=== PATIENT | male | born 1945 | race Caucasian/White ===

== ENCOUNTER 2016-10-13 08:00 | Outpatient (RCR) | payer MEDICARE, BC | END 2016-10-13 12:00 | disposition home or self-care (01) | LOC: PT 08:00 | DX: R26.81 Unsteadiness on feet (principal) ==

== ENCOUNTER → 2016-11-30 | Outpatient (CLI) | payer MEDICARE, BC | LOC: RAD 13:23 | DX: R06.02 Shortness of breath (principal) ==

== ENCOUNTER 2017-12-21 09:30 | Outpatient (RCR) | payer MEDICARE, BC | END 2017-12-21 10:00 | disposition home or self-care (01) | LOC: PT 09:30 | DX: G20 Parkinson's disease (principal); F02.80 Dementia in other diseases classified elsewhere, unspecified severity, without behavioral disturbance, psychotic disturbance, mood disturbance, and anxiety | CPT/HCPCS: G8978-GP; G8979-GP ==

== ENCOUNTER 2018-09-23 18:45 | Emergency (ER) | payer MEDICARE, BC ==
[~2018-09-23] VITALS: Ht 177.8 cm; Wt 75.0 kg
[2018-09-23 19:00] VITALS: BP 122/71
[2018-09-23] MEDS ORDERED: SULFAMETHOXAZO1 EACH PO (19:15)
[2018-09-23] MEDS ORDERED: CEPHALEXIN500 M1 PO (19:15)
[2018-09-23] MEDS ORDERED: EFFEXOR XR150 M1 PO (19:17)
[2018-09-23] MEDS ORDERED: FLOMAX0.4 MG PO (19:18)
[2018-09-23] MEDS ORDERED: MIRTAZAPINE45 M2 PO (19:18)
[2018-09-23] MEDS ORDERED: ZESTRIL20 M1 PO (19:18)
[2018-09-23] MEDS ORDERED: LAMICTAL200 M1 PO (19:18)
[2018-09-23] MEDS ORDERED: LATANOPROST 2.2.5 ML OU (19:18)
[2018-09-23] MEDS ORDERED: LINZESS145 MCG PO (19:19)
[2018-09-23] MEDS ORDERED: MIRAPEX0.5 MG PO (19:19)
[2018-09-23] MEDS ORDERED: ARICEPT10 M1 PO (19:19)
[2018-09-23] MEDS ORDERED: PERCOCET 2.5-31 EACH PO (19:20)
[2018-09-23] MEDS ORDERED: PROAIR HFA0.09 MG/AC IH (19:20)
[2018-09-23] MEDS ORDERED: MELATONIN10 M2 PO (19:20)
[2018-09-23] MEDS ORDERED: KLONOPIN 0.5MG0.5 MG PO (19:20)
[2018-09-23] MEDS ORDERED: FERROUS GL325 MG/TA1 PO (19:21)
[2018-09-23] MEDS ORDERED: VITAMIN C PURE500 M1 PO (19:21)
[2018-09-23 19:59] LABS: HEMATOCRIT 34.5 % (42.0-52.0); HEMOGLOBIN 11.2 g/dL (13.5-18.0); MEAN CELL VOLUME 93 fl (78-100); MEAN CORPUSCULAR HEMOGLOBIN 30 pg (27-31); MEAN CORPUSCULAR HGB CONC 33 g/dL (33-37); MEAN PLATELET VOLUME 10.7 fl (7.4-10.4); PLATELET COUNT 153 K/mm3 (130-400); RED BLOOD COUNT 3.73 M/mm3 (4.20-5.60); RED CELL DISTRIBUTION WIDTH 13.1 % (11.5-14.5); WHITE BLOOD COUNT 6.6 K/mm3 (4.8-10.8)
[2018-09-23 20:39] LABS: ALBUMIN 3.8 g/dL (3.4-4.8); POTASSIUM 4.6 mmol/L (3.5-5.1); TOTAL PROTEIN 6.3 g/dL (6.2-8.1)
[2018-09-23 20:51] LABS: TOTAL BILIRUBIN 0.2 mg/dL (0.2-1.2)
[2018-09-23 21:13] LABS: LYMPHOCYTE 15 % (20-51); MONOCYTE 15 % (3-10); NEUTROPHILS 70 % (42-75)
[2018-09-23 21:13] LABS: URINE APPEARANCE CLEAR; URINE COLOR YELLOW
[2018-09-23 21:16] LABS: URINE BILIRUBIN NEGATIVE (NEGATIVE); URINE BLOOD TRACE (NEGATIVE); URINE GLUCOSE NEGATIVE (NEGATIVE); URINE KETONE NEGATIVE (NEGATIVE); URINE LEUKOCYTE ESTERASE NEGATIVE (NEGATIVE); URINE NITRATE NEGATIVE (NEGATIVE); URINE PROTEIN(semi-quant) NEGATIVE (NEGATIVE); URINE UROBILINOGEN NORMAL (NORMAL); URINE WBC 0-1 /hpf (0-3)
== END 2018-09-23 22:21 | disposition home or self-care (01) ==
LOC: ED 18:45
PROVIDERS: Nurse Practitioner
DX: L03.012 Cellulitis of left finger (principal); J45.909 Unspecified asthma, uncomplicated; F03.90 Unspecified dementia, unspecified severity, without behavioral disturbance, psychotic disturbance, mood disturbance, and anxiety; I10 Essential (primary) hypertension; G20 Parkinson's disease; M19.90 Unspecified osteoarthritis, unspecified site; Z87.19 Personal history of other diseases of the digestive system; Z86.69 Personal history of other diseases of the nervous system and sense organs; Z98.890 Other specified postprocedural states; Z90.79 Acquired absence of other genital organ(s); Z87.891 Personal history of nicotine dependence

== ENCOUNTER 2019-02-14 10:00 | Outpatient (RCR) | payer MEDICARE, BC ==
[~2019-02-14 10:00] MED LIST: ARICEPT10 M1 PO; CEPHALEXIN500 M1 PO; EFFEXOR XR150 M1 PO; FERROUS GL325 MG/TA1 PO; FLOMAX0.4 MG PO; KLONOPIN 0.5MG0.5 MG PO; LAMICTAL200 M1 PO; LATANOPROST 2.2.5 ML OU; LINZESS145 MCG PO; MELATONIN10 M2 PO; MIRAPEX0.5 MG PO; MIRTAZAPINE45 M2 PO; PERCOCET 2.5-31 EACH PO; PROAIR HFA0.09 MG/AC IH; SULFAMETHOXAZO1 EACH PO; VITAMIN C PURE500 M1 PO; ZESTRIL20 M1 PO
== END 2019-02-14 10:30 | disposition home or self-care (01) ==
LOC: PT 10:00
DX: G20 Parkinson's disease (principal); M54.2 Cervicalgia; R26.81 Unsteadiness on feet; R29.6 Repeated falls

== ENCOUNTER → 2019-03-22 | Outpatient (CLI) | payer MEDICARE, BC | LOC: RAD 16:28 | DX: S61.211A Laceration without foreign body of left index finger without damage to nail, initial encounter (principal) ==

== ENCOUNTER 2019-05-28 21:53 | Emergency (ER) | payer MEDICARE, BC ==
[2019-05-28 22:22] VITALS: BP 137/79
== END 2019-05-28 22:22 | disposition home or self-care (01) ==
LOC: ED 21:53
DX: T16.2XXA Foreign body in left ear, initial encounter (principal); F32.9 Major depressive disorder, single episode, unspecified; I10 Essential (primary) hypertension; G20 Parkinson's disease; F02.80 Dementia in other diseases classified elsewhere, unspecified severity, without behavioral disturbance, psychotic disturbance, mood disturbance, and anxiety; G62.9 Polyneuropathy, unspecified; Z87.891 Personal history of nicotine dependence; X58.XXXA Exposure to other specified factors, initial encounter

== ENCOUNTER 2019-06-30 08:15 | Outpatient (RCR) | payer MEDICARE, BC | END 2019-06-30 09:00 | disposition still patient (30) | LOC: OT 08:15 | DX: G20 Parkinson's disease (principal) ==

== ENCOUNTER 2019-10-25 10:27 | Emergency (ER) | payer MEDICARE, BC ==
[~2019-10-25] VITALS: Ht 177.8 cm; Wt 86.4 kg
[2019-10-25 10:34] VITALS: BP 134/77
[2019-10-25] MEDS ORDERED: LAMOTRIGINE25 M1 PO (10:51)
[2019-10-25] MEDS ORDERED: GABAPENTIN100 MG PO (10:53)
[2019-10-25] MEDS ORDERED: NAMENDA10 MG PO (10:53)
[2019-10-25] MEDS ORDERED: PRAMIPEXOLE DI0.5 MG PO (10:55)
== END 2019-10-25 11:04 | disposition home or self-care (01) ==
LOC: ED 10:27
DX: S00.81XA Abrasion of other part of head, initial encounter (principal); F32.9 Major depressive disorder, single episode, unspecified; G20 Parkinson's disease; F02.80 Dementia in other diseases classified elsewhere, unspecified severity, without behavioral disturbance, psychotic disturbance, mood disturbance, and anxiety; W19.XXXA Unspecified fall, initial encounter; W26.8XXA Contact with other sharp object(s), not elsewhere classified, initial encounter; Y92.009 Unspecified place in unspecified non-institutional (private) residence as the place of occurrence of the external cause

== ENCOUNTER → 2020-01-02 | Outpatient (CLI) | payer MEDICARE, BC ==
[~2020-01-02] MED LIST changes: +GABAPENTIN100 MG PO; +LAMOTRIGINE25 M1 PO; +NAMENDA10 MG PO; +PRAMIPEXOLE DI0.5 MG PO
== END ==
LOC: RAD 11:35
DX: R05 Cough (principal); R06.02 Shortness of breath

== ENCOUNTER 2021-01-25 08:31 | Outpatient (RCR) | payer MEDICARE, BC | END 2021-02-20 17:57 | LOC: OPPGERO 08:31 | DX: F33.1 Major depressive disorder, recurrent, moderate (principal); F41.1 Generalized anxiety disorder; E78.5 Hyperlipidemia, unspecified; I10 Essential (primary) hypertension; N18.30 Chronic kidney disease, stage 3 unspecified; G47.33 Obstructive sleep apnea (adult) (pediatric); G20 Parkinson's disease; J45.909 Unspecified asthma, uncomplicated; N40.0 Benign prostatic hyperplasia without lower urinary tract symptoms; I27.20 Pulmonary hypertension, unspecified; D51.9 Vitamin B12 deficiency anemia, unspecified; Z98.890 Other specified postprocedural states; Z63.4 Disappearance and death of family member ==

== ENCOUNTER 2021-03-23 15:36 | Outpatient (RCR) | payer MEDICARE, BC | END 2021-04-21 12:35 | disposition home or self-care (01) | LOC: OPPGERO 15:36 | DX: F41.1 Generalized anxiety disorder (principal); F33.1 Major depressive disorder, recurrent, moderate; E78.5 Hyperlipidemia, unspecified; I12.9 Hypertensive chronic kidney disease with stage 1 through stage 4 chronic kidney disease, or unspecified chronic kidney disease; I10 Essential (primary) hypertension; N40.0 Benign prostatic hyperplasia without lower urinary tract symptoms; F12.90 Cannabis use, unspecified, uncomplicated; N18.30 Chronic kidney disease, stage 3 unspecified; J45.909 Unspecified asthma, uncomplicated; G20 Parkinson's disease; Z98.1 Arthrodesis status; Z87.891 Personal history of nicotine dependence ==

== ENCOUNTER 2021-04-25 07:47 | Outpatient (RCR) | payer MEDICARE, BC | END 2021-05-23 11:58 | disposition home or self-care (01) | LOC: OPPGERO 07:47 | DX: F41.8 Other specified anxiety disorders (principal); Z63.4 Disappearance and death of family member ==

== ENCOUNTER 2021-05-24 09:49 | Outpatient (RCR) | payer MEDICARE, BC | END 2021-06-20 15:28 | disposition home or self-care (01) | LOC: OPPGERO 09:49 | DX: F41.8 Other specified anxiety disorders (principal); G20 Parkinson's disease; E78.5 Hyperlipidemia, unspecified; I10 Essential (primary) hypertension; N40.0 Benign prostatic hyperplasia without lower urinary tract symptoms; J45.909 Unspecified asthma, uncomplicated; D69.6 Thrombocytopenia, unspecified; Z98.1 Arthrodesis status; Z98.890 Other specified postprocedural states ==

== ENCOUNTER 2021-06-21 07:53 | Outpatient (RCR) | payer MEDICARE, BC | END 2021-07-21 19:33 | disposition home or self-care (01) | LOC: OPPGERO 07:53 | DX: F41.8 Other specified anxiety disorders (principal); E78.5 Hyperlipidemia, unspecified; N40.0 Benign prostatic hyperplasia without lower urinary tract symptoms; I12.9 Hypertensive chronic kidney disease with stage 1 through stage 4 chronic kidney disease, or unspecified chronic kidney disease; N18.30 Chronic kidney disease, stage 3 unspecified; D69.6 Thrombocytopenia, unspecified; J45.909 Unspecified asthma, uncomplicated; G47.33 Obstructive sleep apnea (adult) (pediatric); D63.1 Anemia in chronic kidney disease; Z98.1 Arthrodesis status; Z98.890 Other specified postprocedural states; Z79.899 Other long term (current) drug therapy; Z63.4 Disappearance and death of family member ==

== ENCOUNTER 2021-08-19 08:56 | Outpatient (RCR) | payer MEDICARE, BC | END 2021-08-20 | LOC: PT | DX: M17.11 Unilateral primary osteoarthritis, right knee (principal); Z96.651 Presence of right artificial knee joint ==

== ENCOUNTER 2021-08-22 08:50 | Outpatient (RCR) | payer MEDICARE, BC | END 2021-09-20 | disposition home or self-care (01) | LOC: PT | DX: M17.11 Unilateral primary osteoarthritis, right knee (principal); Z96.651 Presence of right artificial knee joint ==

== ENCOUNTER → 2022-01-17 | Outpatient (CLI) | payer MEDICARE, BC | LOC: LAB 10:26 | DX: L02.91 Cutaneous abscess, unspecified (principal) ==

== ENCOUNTER 2022-06-19 07:54 | Emergency (ER) | payer MEDICARE, BC ==
[~2022-06-19] VITALS: Wt 76.3 kg
[2022-06-19] MEDS ORDERED: DONEPEZIL HCL10 MG PO (08:03)
[2022-06-19] MEDS ORDERED: LAMOTRIGINE200 MG PO (08:03)
[2022-06-19] MEDS ORDERED: RISPERIDONE0.25 M2 PO (08:05)
[2022-06-19 08:59] LABS: HEMATOCRIT 42.6 % (42.0-52.0); HEMOGLOBIN 13.9 g/dL (13.5-18.0); MEAN CELL VOLUME 95 fl (78-100); MEAN CORPUSCULAR HEMOGLOBIN 31 pg (27-31); MEAN CORPUSCULAR HGB CONC 33 g/dL (33-37); MEAN PLATELET VOLUME 10.3 fl (7.4-10.4); PLATELET COUNT 167 K/mm3 (130-400); RED BLOOD COUNT 4.51 M/mm3 (4.20-5.60); WHITE BLOOD COUNT 9.5 K/mm3 (4.8-10.8)
[2022-06-19 09:09] LABS: ALBUMIN 4.1 g/dL (3.4-4.8); POTASSIUM 4.2 mmol/L (3.5-5.1); SODIUM 138 mmol/L (136-145)
[2022-06-19 09:10] LABS: CALCIUM 9.4 mg/dL (8.3-10.5)
[2022-06-19 09:11] LABS: GLUCOSE 116 mg/dL (75-110); TOTAL PROTEIN 6.6 g/dL (6.2-8.1)
[2022-06-19 09:12] LABS: CARBON DIOXIDE 20 mmol/L (23-31)
[2022-06-19 09:13] LABS: TOTAL BILIRUBIN 0.5 mg/dL (0.2-1.2)
[2022-06-19 09:17] LABS: AST-SGOT 34 U/L (5-34)
[2022-06-19 09:18] LABS: ALT/SGPT 27 U/L (0-55)
[2022-06-19 09:19] LABS: LIPASE 23 U/L (8-78)
[2022-06-19 09:25] LABS: TROPONIN-I < 0.030 ng/mL (<0.030)
[2022-06-19 09:29] LABS: LYMPHOCYTE 4 % (20-51); MONOCYTE 7 % (3-10); NEUTROPHILS 86 % (42-75)
[2022-06-19 10:38] VITALS: BP 119/56
== END 2022-06-19 10:29 | disposition home or self-care (01) ==
LOC: ED 07:54
PROVIDERS: Nurse Practitioner
DX: B34.9 Viral infection, unspecified (principal); R11.2 Nausea with vomiting, unspecified; R53.81 Other malaise; Z20.822 Contact with and (suspected) exposure to COVID-19
CPT/HCPCS: J2405; J7030

== ENCOUNTER → 2022-06-27 | Outpatient (CLI) | payer MEDICARE, BC ==
[~2022-06-27] MED LIST changes: +DONEPEZIL HCL10 MG PO; +LAMOTRIGINE200 MG PO; +RISPERIDONE0.25 M2 PO
== END ==
LOC: RAD 09:00
DX: J45.40 Moderate persistent asthma, uncomplicated (principal); R63.4 Abnormal weight loss; R05.9 Cough, unspecified
CPT/HCPCS: Q9967

== ENCOUNTER → 2023-02-16 | Outpatient (CLI) | payer MEDICARE, BC | LOC: RAD 09:17 | DX: R05.3 Chronic cough (principal) ==

== ENCOUNTER → 2023-06-18 | Outpatient (CLI) | payer MEDICARE, BC | LOC: RAD 11:53 | DX: R05.9 Cough, unspecified (principal) ==

== ENCOUNTER → 2023-08-03 | Outpatient (CLI) | payer MEDICARE, BC | LOC: LAB 10:55 | DX: R05.9 Cough, unspecified (principal) ==

== ENCOUNTER 2023-11-13 09:21 | Outpatient (RCR) | payer MEDICARE, BC | END 2023-11-21 10:48 | disposition home or self-care (01) | LOC: OPPGERO 09:21 | DX: F41.1 Generalized anxiety disorder (principal); F33.1 Major depressive disorder, recurrent, moderate; F43.10 Post-traumatic stress disorder, unspecified ==

== ENCOUNTER 2024-01-22 09:00 | Outpatient (RCR) | payer MEDICARE, BC | END 2024-02-21 12:54 | LOC: OPPGERO 09:00 | DX: F33.0 Major depressive disorder, recurrent, mild (principal); F41.1 Generalized anxiety disorder; F43.10 Post-traumatic stress disorder, unspecified ==

== ENCOUNTER → 2024-04-29 | Outpatient (CLI) | payer MEDICARE, BC | LOC: RAD 11:45 | DX: S32.010A Wedge compression fracture of first lumbar vertebra, initial encounter for closed fracture (principal); S32.020A Wedge compression fracture of second lumbar vertebra, initial encounter for closed fracture; M48.061 Spinal stenosis, lumbar region without neurogenic claudication; M51.369 Other intervertebral disc degeneration, lumbar region without mention of lumbar back pain or lower extremity pain; W19.XXXA Unspecified fall, initial encounter ==